=== PATIENT | female | born 1930 | race Caucasian/White ===

== ENCOUNTER 2017-08-11 15:47 | Observation (INO) | payer MEDICARE ==
[~2017-08-11] VITALS: Ht 162.6 cm; Wt 90.7 kg
[2017-08-11] MEDS ORDERED: SODIUM CHLORIDE 0.9% 500ML 500 ML IV ONE (16:09)
[2017-08-11 16:12] LABS: BASOPHILS % (AUTO) 1.2 % (0.0-5.0); EOSINOPHILS % (AUTO) 0.6 % (0.0-8.0); LYMPHOCYTES % (AUTO) 19.3 % (21.0-51.0); MEAN CORPUSCULAR HEMOGLOBIN 33.1 pg (27.0-33.0); MEAN CORPUSCULAR HGB CONC 34.4 g/dL (32.0-36.0); MONOCYTES % (AUTO) 15.2 % (3.0-13.0); NEUTROPHILS % (AUTO) 63.7 % (40.0-77.0); NUCLEATED RED BLOOD CELLS 0.2 % (0.0-0.19); PLATELET COUNT (AUTO) 398 K/uL (130-400); RED BLOOD CELL COUNT(AUTO) 3.85 MIL/uL (4.00-5.50); RED CELL DISTRIBUTION WIDTH 14.8 % (11.0-15.5); WHITE BLOOD COUNT (AUTO) 9.1 K/uL (4.8-10.8)
[2017-08-11] MEDS ORDERED: VERAPAMIL HCL 2.5 MG/ML VIAL IVP SCH (16:15)
[2017-08-11 16:22] LABS: CREATININE 1.4 mg/dL (0.5-1.5); POTASSIUM 3.8 mmol/L (3.5-5.1)
[2017-08-11 16:24] LABS: INR 3.48 (0.85-1.15); PARTIAL THROMBOPLASTIN TIME 33.6 SEC (26.3-35.5)
[2017-08-11 16:27] LABS: PROTHROMBIN TIME 35.7 SEC (9.6-11.6)
[2017-08-11 16:46] LABS: BILIRUBIN,TOTAL 1.8 mg/dL (0.2-1.0); TOTAL PROTEIN, SERUM 8.3 g/dL (6.0-8.3)
[2017-08-11] MEDS ORDERED: ACETAMINOPHEN 325 MG TAB ONE (16:49)
[2017-08-11 17:09] LABS: CREATINE KINASE MB 1.2 ng/mL (0.5-3.6)
[2017-08-11] MEDS ORDERED: METOPROLOL TARTRATE 1 MG/ML 5ML VIAL IV ONE ×2 (17:45→19:22)
[2017-08-11] MEDS ORDERED: CEFTRIAXONE SODIUM 1 GM ONE (17:46)
[2017-08-11] MEDS ORDERED: METOPROLOL TARTRATE 50 MG TAB ONE (17:46)
[2017-08-11] MEDS ORDERED: AZITHROMYCIN 500MG+NS 250ML 250 ML IV ONE (18:46)
[2017-08-11] MEDS ORDERED: FUROSEMIDE 10 MG/ML 2ML VIAL ONE (19:23)
[2017-08-11] MEDS ORDERED: AMIODARONE HCL 150 MG in DEXTROSE 5%-WATER 100 ML IV SCH (19:30)
[2017-08-11] MEDS ORDERED: AMIODARONE HCL 900 MG in DEXTROSE 5%-WATER 500 ML IV SCH (19:30)
[2017-08-11] MEDS: FUROSEMIDE 10 MG/ML 2ML VIAL IV SCH (19:30)
[2017-08-11 20:30] VITALS: BP 86/55
[2017-08-11] MEDS: POTASSIUM CHLORIDE 10 MEQ/TAB.SA PO SCH (21:00)
[2017-08-11] MEDS ORDERED: AMLO5TAB4 PO (22:58)
[2017-08-11] MEDS ORDERED: FURO40TA7 PO (22:59)
[2017-08-11] MEDS ORDERED: WARF4TAB41 PO (23:03)
[2017-08-11] MEDS ORDERED: METO-391 PO (23:03)
[2017-08-11] MEDS ORDERED: LOSA50TA37 PO (23:03)
[2017-08-11] MEDS ORDERED: ATOR20TA PO (23:03)
[2017-08-11] MEDS ORDERED: PANT20TA PO (23:03)
[2017-08-11] MEDS ORDERED: POTA10CA44 PO (23:03)
[2017-08-11 23:36] VITALS: BP 89/33
[2017-08-12] VITALS (27 sets, daily range): BP systolic 91–147; BP diastolic 43–86
[2017-08-12] MEDS ORDERED: ACETAMINOPHEN 325 MG TAB PO PRN ×2 (01:45)
[2017-08-12] MEDS ORDERED: CLONIDINE HCL 0.1 MG TABLET PO PRN (01:45)
[2017-08-12] MEDS ORDERED: ONDANSETRON HCL MDV 20ML 2 MG/ML VIAL IVP PRN (01:45)
[2017-08-12] MEDS ORDERED: LACTULOSE 20 GM/30 ML UDCUP PO PRN (01:45)
[2017-08-12 04:08] LABS: BASOPHILS % (AUTO) 0.6 % (0.0-5.0); HEMATOCRIT 36.1 % (36-48); MEAN CORPUSCULAR HEMOGLOBIN 32.5 pg (27.0-33.0); MEAN CORPUSCULAR HGB CONC 32.3 g/dL (32.0-36.0); MEAN CORPUSCULAR VOLUME 100.7 fL (79-99); MONOCYTES % (AUTO) 8.1 % (3.0-13.0); NEUTROPHILS % (AUTO) 84.8 % (40.0-77.0); NUCLEATED RED BLOOD CELLS 0.6 % (0.0-0.19); PLATELET COUNT (AUTO) 293 K/uL (130-400); RED BLOOD CELL COUNT(AUTO) 3.58 MIL/uL (4.00-5.50); WHITE BLOOD COUNT (AUTO) 12.2 K/uL (4.8-10.8)
[2017-08-12 04:28] LABS: INR 4.53 (0.85-1.15)
[2017-08-12 04:29] LABS: CARBON DIOXIDE 22 mmol/L (21-32); CHLORIDE 104 mmol/L (101-111); CREATINE KINASE, TOTAL 70 U/L (21-232); CREATININE 1.4 mg/dL (0.5-1.5); GLOMERULAR FILTR. RATE CALC 38 mL/min (>60); GLUCOSE,RANDOM 139 mg/dL (70-105); MYOGLOBIN 77 ng/mL (10-92); POTASSIUM 4.4 mmol/L (3.5-5.1); PROTHROMBIN TIME 46.2 SEC (9.6-11.6); SODIUM SERUM 138 mmol/L (136-145); THYROID STIMULATING HORMONE 0.04 uIU/mL (0.36-3.74); TROPONIN I < 0.04 ng/mL (0.00-0.06); UREA NITROGEN, BLOOD 22 mg/dL (7-18)
[2017-08-12 04:38] LABS: LYMPHOCYTES % (AUTO) 6.5 % (21.0-51.0)
[2017-08-12 04:39] LABS: B-TYPE NATRIURETIC PEPTIDE 562 pg/mL (0-100)
[2017-08-12] MEDS: IPRATROPIUM 0.5 MG/2.5 ML INH IH SCH ×4 (06:40→23:20)
[2017-08-12] MEDS ORDERED: FENTANYL CITRATE PF 50 MCG/1 ML 2ML VIAL IVP SCH (08:30)
[2017-08-12] MEDS ORDERED: MIDAZOLAM HCL 1 MG/ML 2ML VIAL IVP SCH (08:30)
[2017-08-12] MEDS ORDERED: FENTANYL CITRATE PF 50 MCG/1 ML 2ML VIAL ONE (08:37)
[2017-08-12] MEDS ORDERED: MIDAZOLAM HCL 1 MG/ML 2ML VIAL ONE (08:37)
[2017-08-12] MEDS: FUROSEMIDE 10 MG/ML 2ML VIAL IV SCH ×2 (11:11→21:00)
[2017-08-12] MEDS: LEVOFLOXACIN 500 MG/D5W 100 ML 100 ML IV SCH (11:14)
[2017-08-12] MEDS: PANTOPRAZOLE SODIUM 40 MG TABLET.DR PO SCH (11:15)
[2017-08-12] MEDS ORDERED: MAGNESIUM 2GM PREMIX 50ML 50 ML IV PRN (11:30)
[2017-08-12] MEDS: POTASSIUM CHLORIDE 10 MEQ/TAB.SA PO SCH ×2 (13:37→21:01)
[2017-08-12] MEDS: METOPROLOL TARTRATE 50 MG TAB PO SCH ×2 (13:37→21:00)
[2017-08-12] MEDS ORDERED: ATORVASTATIN CALCIUM 10 MG TABLET PO SCH (21:00)
[2017-08-12] MEDS ORDERED: METOPROLOL TARTRATE 50 MG TAB PO SCH (21:00)
[2017-08-13 03:49] VITALS: BP 124/67
[2017-08-13 04:34] LABS: CREATININE 1.4 mg/dL (0.5-1.5); MAGNESIUM 2.3 mg/dL (1.80-2.40); POTASSIUM 3.9 mmol/L (3.5-5.1)
[2017-08-13] MEDS: IPRATROPIUM 0.5 MG/2.5 ML INH IH SCH ×2 (06:26→10:50)
[2017-08-13 08:11] VITALS: BP 143/73
[2017-08-13] MEDS: FUROSEMIDE 10 MG/ML 2ML VIAL IV SCH (08:18)
[2017-08-13] MEDS: METOPROLOL TARTRATE 50 MG TAB PO SCH (08:19)
[2017-08-13] MEDS: LEVOFLOXACIN 500 MG/D5W 100 ML 100 ML IV SCH (08:19)
[2017-08-13] MEDS: PANTOPRAZOLE SODIUM 40 MG TABLET.DR PO SCH (08:19)
[2017-08-13] MEDS: POTASSIUM CHLORIDE 10 MEQ/TAB.SA PO SCH (08:19)
[2017-08-13] MEDS ORDERED: POTASSIUM CHLORIDE 10 MEQ/TAB.SA PO SCH (09:00)
[2017-08-13] MEDS ORDERED: AMLODIPINE BESYLATE 5 MG TAB PO SCH (09:00)
[2017-08-13] MEDS ORDERED: LOSARTAN 50 MG TABLET PO SCH (09:00)
[2017-08-13] MEDS ORDERED: DOXY100T2 PO (09:25)
[2017-08-13 12:00] VITALS: BP 112/57
[2017-08-13 13:29] VITALS: BP 100/53
[2017-08-13 13:31] VITALS: BP 103/53
[2017-08-13] MEDS ORDERED: AMIO200T5 PO (13:32)
[2017-08-13] MEDS ORDERED: FURO40TA5 PO (13:32)
[2017-08-13 13:33] VITALS: BP 110/59
[2017-08-13] MEDS ORDERED: WARF3TAB59 PO (13:40)
[2017-08-13] MEDS ORDERED: POTA10CA44 PO (13:41)
[2017-08-13 14:39] LABS: INR 4.21 (0.85-1.15)
== END 2017-08-13 15:54 | disposition home or self-care (01) ==
LOC: EDH 15:47 → EDHIP 17:45 → 2BH 19:14
PROVIDERS: ADMIT Family Medicine; ATTEND Family Medicine
DX: I48.0 Paroxysmal atrial fibrillation (principal); I48.91 Unspecified atrial fibrillation; I11.0 Hypertensive heart disease with heart failure; I50.32 Chronic diastolic (congestive) heart failure; K29.70 Gastritis, unspecified, without bleeding; H40.9 Unspecified glaucoma; D50.9 Iron deficiency anemia, unspecified; E78.5 Hyperlipidemia, unspecified; Z79.01 Long term (current) use of anticoagulants; I25.2 Old myocardial infarction
CPT/HCPCS: 36415 ×3; 71045; 80048 ×2; 80053; 82550 ×2; 82553 ×2; 83605 ×2; 83735 ×2; 83874; 83880 ×2; 84439; 84443; 84484 ×2; 85025 ×2; 85610 ×3; 85730; 87040 ×2; 92960; 93005 ×4; 93306; 94640 ×6; 94664; 96365; 96366 ×3; 96367; 96368; 96375; 96376 ×2; G0378 ×46; J0282 ×2; J0456; J0696; J1940 ×4; J1956 ×2; J2250; J3010; J3475; J3490 ×3; J7040; J7060 ×2